=== PATIENT | female | born 1955 | race Caucasian/White ===

== ENCOUNTER → 2016-10-21 | Outpatient (CLI) | payer OTHER ==
[~2016-10-21] MED LIST: ATENOLOL PO; DAYPRO600 M1 PO; GLIPIZIDE1 POW PO; GLUCOPHAGE500 MG PO; HYDR25T PO; LANTUS SOLOS100 U/M1 SC; LANTUS100 U/ML SC; LEXAPRO20 MG PO; LEXAPRO5 MG; MAGNESIUM DR64 MG PO; NORVASC2.5 MG PO; OMEPRAZOLE40 MG PO; PRAVASTATIN SOD40 MG PO; RESTORIL30 M1 PO; TENORMIN0.5 MG/ML; VICODIN 5/500 505 MG PO; VICODIN 500 MG-1 TAB PO; VISTARIL25 M2 PO; VITAMIN D50000 I3 PO; XANAX0.25 MG; ZESTRIL2.5 MG; ZOCOR5 MG
[2016-10-21 09:40] LABS: ALBUMIN 3.4 gm/dl (3.1-4.5); BILIRUBIN, TOTAL 0.4 mg/dl (0.2-1.0); MAGNESIUM 1.6 mg/dL (1.5-2.1); POTASSIUM 3.4 mmol/L (3.5-5.1); TOTAL PROTEIN 7.8 gm/dL (6.4-8.2)
[2016-10-21 09:46] LABS: THYROID STIM HORMONE (HS) 2.51 uIU/ml (0.358-4.75)
[2016-10-21 10:03] LABS: HEMOGLOBIN A1c 7.9 % (4.8-5.6)
== END | disposition home or self-care (01) ==
LOC: LAB 08:52
PROVIDERS: Family Medicine
DX: E11.9 Type 2 diabetes mellitus without complications (principal); E78.5 Hyperlipidemia, unspecified

== ENCOUNTER → 2017-04-13 | Outpatient (CLI) | payer OTHER ==
[2017-04-13 09:11] LABS: BASO # 0.1 10*3/uL (0.0-0.1); BASO % 0.7 % (0.0-1.0); EOS # 0.4 10*3/uL (0.0-0.4); EOS % 3.2 % (1.0-4.0); HEMATOCRIT 40.7 % (37.0-47.0); HEMOGLOBIN 13.7 g/dl (12.0-16.0); LYMPH # 4.6 10*3/uL (1.3-4.4); LYMPH % 36.6 % (27.0-41.0); MEAN CELL VOLUME 85.7 fl (81.0-99.0); MEAN CORPUSCULAR HGB 28.8 pg (27.0-31.0); MEAN CORPUSCULAR HGB CONC 33.7 g/dl (33.0-37.0); MEAN PLATELET VOLUME 10.3 fl (9.6-12.3); MONO % 7.9 % (3.0-9.0); NEUT # 6.4 10*3/uL (2.3-7.9); NEUT % 51.3 % (47.0-73.0); PLATELET COUNT AUTOMATED 468 10*3/uL (130-400); RED BLOOD COUNT 4.75 10*6/uL (4.10-5.10); RED CELL DISTRI WIDTH 12.6 % (0-14.5); WHITE BLOOD COUNT 12.5 10*3/uL (4.8-10.8)
[2017-04-13 09:38] LABS: ALBUMIN 3.6 gm/dl (3.1-4.5); CREATININE 1.48 mg/dL (0.55-1.02); POTASSIUM 3.4 mmol/L (3.5-5.1); TOTAL PROTEIN 8.4 gm/dL (6.4-8.2)
== END | disposition home or self-care (01) ==
LOC: LAB 08:19
PROVIDERS: Registered Nurse Flight
DX: D72.828 Other elevated white blood cell count (principal)

== ENCOUNTER → 2017-07-24 | Outpatient (CLI) | payer OTHER ==
[2017-07-24 09:52] LABS: BILIRUBIN NEGATIVE (NEGATIVE); BLOOD NEGATIVE (NEGATIVE); CLARITY CLOUDY (CLEAR); COLOR YELLOW (YELLOW); GLUCOSE NEGATIVE (NEGATIVE); KETONE NEGATIVE (NEGATIVE); LEUKO ESTERASE 2+ (NEGATIVE); NITRITE NEGATIVE (NEGATIVE); UROBILINOGEN 0.2 E.U./dl (0.2-1.0)
[2017-07-24 09:59] LABS: BACTERIA 2+; EPITHELIAL CELLS 41-50; WBC 41-50 wbc/hpf (0-5)
[2017-07-24 10:07] LABS: ALBUMIN 3.3 gm/dl (3.1-4.5); ALKALINE PHOSPHATASE 99 U/L (45-117); BILIRUBIN, DIRECT < 0.1 mg/dL (0.0-0.2); BUN 19 mg/dl (7-24); CHLORIDE 102 mmol/L (98-107); CHOLESTEROL 183 mg/dL (<200); CREATININE 1.15 mg/dL (0.55-1.02); HDL CHOLESTEROL 30 mg/dl (40-60); LDL CHOLESTEROL 114 mg/dL (9-159); POTASSIUM 3.9 mmol/L (3.5-5.1); SGOT/AST 11 IU/L (3-35); SGPT/ALT 21 U/L (12-78); SODIUM 139 mmol/L (136-145); TOTAL PROTEIN 7.9 gm/dL (6.4-8.2); TRIGLYCERIDES 197 mg/dl (<150); VLDL CHOLESTEROL 39 mg/dL (6-40)
== END | disposition home or self-care (01) ==
LOC: LAB 09:07
PROVIDERS: Internal Medicine
DX: E11.65 Type 2 diabetes mellitus with hyperglycemia (principal); E78.5 Hyperlipidemia, unspecified; E55.9 Vitamin D deficiency, unspecified

== ENCOUNTER → 2017-10-12 | Outpatient (CLI) | payer OTHER ==
[2017-10-12 08:35] LABS: HEMATOCRIT 39.4 % (37.0-47.0); HEMOGLOBIN 13.4 g/dl (12.0-16.0); MEAN CELL VOLUME 81.7 fl (81.0-99.0); MEAN CORPUSCULAR HGB 27.8 pg (27.0-31.0); MEAN PLATELET VOLUME 10.1 fl (9.6-12.3); RED BLOOD COUNT 4.82 10*6/uL (4.10-5.10); RED CELL DISTRI WIDTH 13.6 % (0-14.5); WHITE BLOOD COUNT 11.1 10*3/uL (4.8-10.8)
[2017-10-12 09:15] LABS: ALBUMIN 3.3 gm/dl (3.1-4.5); BUN 14 mg/dl (7-24); CHLORIDE 104 mmol/L (98-107); CHOLESTEROL 150 mg/dL (<200); CREATININE 1.08 mg/dL (0.55-1.02); POTASSIUM 3.6 mmol/L (3.5-5.1); SGOT/AST 14 IU/L (3-35); SGPT/ALT 22 U/L (12-78); SODIUM 141 mmol/L (136-145); TRIGLYCERIDES 167 mg/dl (<150); VLDL CHOLESTEROL 33 mg/dL (6-40)
[2017-10-12 09:16] LABS: ALKALINE PHOSPHATASE 107 U/L (45-117); HDL CHOLESTEROL 31 mg/dl (40-60); LDL CHOLESTEROL 86 mg/dL (9-159); TOTAL PROTEIN 7.8 gm/dL (6.4-8.2)
== END | disposition home or self-care (01) ==
LOC: LAB 08:02
PROVIDERS: Registered Nurse Flight
DX: E11.22 Type 2 diabetes mellitus with diabetic chronic kidney disease (principal); N18.9 Chronic kidney disease, unspecified; E11.40 Type 2 diabetes mellitus with diabetic neuropathy, unspecified; E78.5 Hyperlipidemia, unspecified; E55.9 Vitamin D deficiency, unspecified

== ENCOUNTER → 2017-12-10 | Outpatient (CLI) | payer OTHER ==
[2017-12-10 10:39] LABS: BILIRUBIN NEGATIVE (NEGATIVE); BLOOD NEGATIVE (NEGATIVE); CLARITY SL CLOUDY (CLEAR); COLOR YELLOW (YELLOW); GLUCOSE NEGATIVE (NEGATIVE); KETONE NEGATIVE (NEGATIVE); LEUKO ESTERASE NEGATIVE (NEGATIVE); NITRITE NEGATIVE (NEGATIVE); SPECIFIC GRAVITY 1.015 (1.005-1.030); UROBILINOGEN 0.2 E.U./dl (0.2-1.0)
[2017-12-10 11:11] LABS: ALBUMIN 3.5 gm/dl (3.1-4.5); ALKALINE PHOSPHATASE 106 U/L (45-117); BILIRUBIN, DIRECT < 0.1 mg/dL (0.0-0.2); BUN 15 mg/dl (7-24); CHLORIDE 103 mmol/L (98-107); CHOLESTEROL 149 mg/dL (<200); CREATININE 1.13 mg/dL (0.55-1.02); HDL CHOLESTEROL 27 mg/dl (40-60); LDL CHOLESTEROL 80 mg/dL (9-159); POTASSIUM 3.5 mmol/L (3.5-5.1); SGOT/AST 15 IU/L (3-35); SGPT/ALT 23 U/L (12-78); SODIUM 139 mmol/L (136-145); TOTAL PROTEIN 8.2 gm/dL (6.4-8.2); TRIGLYCERIDES 211 mg/dl (<150); VLDL CHOLESTEROL 42 mg/dL (6-40)
[2017-12-10 11:20] LABS: EPITHELIAL CELLS 26-30
[2017-12-10 11:21] LABS: BACTERIA 2+
== END | disposition home or self-care (01) ==
LOC: LAB 10:10
PROVIDERS: Internal Medicine
DX: E78.5 Hyperlipidemia, unspecified (principal); E04.9 Nontoxic goiter, unspecified; E11.9 Type 2 diabetes mellitus without complications; E55.9 Vitamin D deficiency, unspecified; R30.9 Painful micturition, unspecified; R35.0 Frequency of micturition

== ENCOUNTER → 2018-04-19 | Outpatient (CLI) | payer OTHER ==
[2018-04-19 13:37] LABS: BILIRUBIN NEGATIVE (NEGATIVE); BLOOD NEGATIVE (NEGATIVE); CLARITY SL CLOUDY (CLEAR); COLOR YELLOW (YELLOW); GLUCOSE NEGATIVE (NEGATIVE); KETONE NEGATIVE (NEGATIVE); LEUKO ESTERASE TRACE (NEGATIVE); NITRITE NEGATIVE (NEGATIVE); UROBILINOGEN 0.2 E.U./dl (0.2-1.0)
[2018-04-19 14:01] LABS: ALBUMIN 3.4 gm/dl (3.1-4.5); ALKALINE PHOSPHATASE 114 U/L (45-117); BUN 11 mg/dl (7-24); CHLORIDE 104 mmol/L (98-107); CREATININE 1.22 mg/dL (0.55-1.02); SGOT/AST 23 IU/L (3-35); SGPT/ALT 20 U/L (12-78); SODIUM 136 mmol/L (136-145); TOTAL PROTEIN 8.7 gm/dL (6.4-8.2)
[2018-04-19 14:02] LABS: BILIRUBIN, DIRECT < 0.1 mg/dL (0.0-0.2)
[2018-04-19 14:17] LABS: CHOLESTEROL 134 mg/dL (<200); HDL CHOLESTEROL 27 mg/dl (40-60); LDL CHOLESTEROL 65 mg/dL (9-159); TRIGLYCERIDES 210 mg/dl (<150); VLDL CHOLESTEROL 42 mg/dL (6-40)
[2018-04-19 14:25] LABS: RBC 0-2 rbc/hpf (0-2)
[2018-04-19 14:26] LABS: BACTERIA 2+
[2018-04-19 14:32] LABS: FREE T4 1.04 ng/dl (0.76-1.46)
== END | disposition home or self-care (01) ==
LOC: LAB 13:08
PROVIDERS: Internal Medicine
DX: E11.9 Type 2 diabetes mellitus without complications (principal); E04.9 Nontoxic goiter, unspecified; E78.5 Hyperlipidemia, unspecified; E55.9 Vitamin D deficiency, unspecified

== ENCOUNTER → 2018-07-13 | Outpatient (CLI) | payer OTHER ==
[2018-07-13 11:42] LABS: HEMATOCRIT 39.5 % (37.0-47.0); HEMOGLOBIN 12.6 g/dl (12.0-16.0); MEAN CELL VOLUME 85.5 fl (81.0-99.0); MEAN CORPUSCULAR HGB 27.3 pg (27.0-31.0); MEAN CORPUSCULAR HGB CONC 31.9 g/dl (33.0-37.0); MEAN PLATELET VOLUME 10.4 fl (9.6-12.3); RED BLOOD COUNT 4.62 10*6/uL (4.10-5.10); RED CELL DISTRI WIDTH 14.2 % (0-14.5); WHITE BLOOD COUNT 12.9 10*3/uL (4.8-10.8)
[2018-07-13 12:10] LABS: ALBUMIN 3.3 gm/dl (3.1-4.5); CREATININE 1.28 mg/dL (0.55-1.02); POTASSIUM 3.6 mmol/L (3.5-5.1); TOTAL PROTEIN 7.8 gm/dL (6.4-8.2)
== END | disposition home or self-care (01) ==
LOC: LAB 11:21
PROVIDERS: Registered Nurse Flight
DX: E11.9 Type 2 diabetes mellitus without complications (principal); I10 Essential (primary) hypertension; E78.5 Hyperlipidemia, unspecified; E55.9 Vitamin D deficiency, unspecified

== ENCOUNTER → 2018-12-09 | Outpatient (CLI) | payer OTHER ==
[2018-12-09 10:56] LABS: BILIRUBIN NEGATIVE (NEGATIVE); BLOOD NEGATIVE (NEGATIVE); CLARITY SL CLOUDY (CLEAR); COLOR YELLOW (YELLOW); GLUCOSE NEGATIVE (NEGATIVE); KETONE NEGATIVE (NEGATIVE); LEUKO ESTERASE NEGATIVE (NEGATIVE); NITRITE NEGATIVE (NEGATIVE); PH 6.5 (5.0-9.0); UROBILINOGEN 0.2 E.U./dl (0.2-1.0)
[2018-12-09 11:13] LABS: MUCOUS TRACE
[2018-12-09 11:27] LABS: ALBUMIN 3.4 gm/dl (3.1-4.5); BILIRUBIN, DIRECT 0.2 mg/dL (0.0-0.2); CREATININE 1.35 mg/dL (0.55-1.02); FREE T4 1.13 ng/dl (0.76-1.46); POTASSIUM 3.8 mmol/L (3.5-5.1); TOTAL PROTEIN 8.1 gm/dL (6.4-8.2)
[2018-12-09 11:33] LABS: THYROID STIM HORMONE (HS) 2.35 uIU/ml (0.358-4.75)
== END | disposition home or self-care (01) ==
LOC: LAB 10:23
PROVIDERS: Internal Medicine
DX: E11.9 Type 2 diabetes mellitus without complications (principal); E04.9 Nontoxic goiter, unspecified; E78.5 Hyperlipidemia, unspecified; E55.9 Vitamin D deficiency, unspecified; I10 Essential (primary) hypertension

== ENCOUNTER 2019-04-15 18:37 | Emergency (ER) | payer OTHER ==
[~2019-04-15] VITALS: Ht 175.2 cm; Wt 124.7 kg
[2019-04-15] MEDS ORDERED: NORCO 5-325 TA1 EACH PO (21:28)
[2019-04-15] MEDS ORDERED: CYCLOBENZAPRINE5 M3 PO (21:28)
== END 2019-04-15 21:32 | disposition home or self-care (01) ==
LOC: ED 18:37
DX: S39.012A Strain of muscle, fascia and tendon of lower back, initial encounter (principal); M25.552 Pain in left hip; Z88.0 Allergy status to penicillin; Z91.040 Latex allergy status; Z79.899 Other long term (current) drug therapy; Z79.4 Long term (current) use of insulin; Z96.641 Presence of right artificial hip joint; Z96.642 Presence of left artificial hip joint; X50.1XXA Overexertion from prolonged static or awkward postures, initial encounter; Y93.89 Activity, other specified; Y92.238 Other place in hospital as the place of occurrence of the external cause; Y99.8 Other external cause status

== ENCOUNTER → 2019-05-20 | Outpatient (CLI) | payer OTHER ==
[~2019-05-20] MED LIST changes: +CYCLOBENZAPRINE5 M3 PO; +NORCO 5-325 TA1 EACH PO
[2019-05-20 12:46] LABS: BILIRUBIN NEGATIVE (NEGATIVE); BLOOD NEGATIVE (NEGATIVE); CLARITY CLEAR (CLEAR); COLOR YELLOW (YELLOW); GLUCOSE NEGATIVE (NEGATIVE); KETONE NEGATIVE (NEGATIVE); LEUKO ESTERASE NEGATIVE (NEGATIVE); NITRITE NEGATIVE (NEGATIVE); PH 7.5 (5.0-9.0)
[2019-05-20 13:07] LABS: ALBUMIN 3.3 gm/dl (3.1-4.5); ALKALINE PHOSPHATASE 63 U/L (45-117); BILIRUBIN, DIRECT < 0.1 mg/dL (0.0-0.2); BUN 12 mg/dl (7-24); CHLORIDE 105 mmol/L (98-107); CHOLESTEROL 133 mg/dL (<200); CREATININE 1.19 mg/dL (0.55-1.02); FREE T4 1.05 ng/dl (0.76-1.46); HDL CHOLESTEROL 27 mg/dl (40-60); LDL CHOLESTEROL 69 mg/dL (9-159); SGOT/AST 24 IU/L (3-35); SGPT/ALT 21 U/L (12-78); SODIUM 141 mmol/L (136-145); TOTAL PROTEIN 7.7 gm/dL (6.4-8.2); TRIGLYCERIDES 187 mg/dl (<150); VLDL CHOLESTEROL 37 mg/dL (6-40)
[2019-05-20 13:11] LABS: POTASSIUM 3.6 mmol/L (3.5-5.1)
== END | disposition home or self-care (01) ==
LOC: LAB 11:31
PROVIDERS: Internal Medicine
DX: E78.5 Hyperlipidemia, unspecified (principal); E11.9 Type 2 diabetes mellitus without complications; E04.9 Nontoxic goiter, unspecified; E83.42 Hypomagnesemia

== ENCOUNTER → 2020-01-10 | Outpatient (CLI) | payer MEDICARE ==
[2020-01-10 10:28] LABS: BASO # 0.1 10*3/uL (0.0-0.1); BASO % 0.8 % (0.0-1.0); EOS # 0.4 10*3/uL (0.0-0.4); EOS % 2.8 % (1.0-4.0); HEMATOCRIT 45.6 % (37.0-47.0); LYMPH # 4.7 10*3/uL (1.3-4.4); MEAN CELL VOLUME 83.7 fl (81.0-99.0); MEAN CORPUSCULAR HGB 25.9 pg (27.0-31.0); MEAN CORPUSCULAR HGB CONC 30.9 g/dl (33.0-37.0); MEAN PLATELET VOLUME 10.4 fl (9.6-12.3); MONO # 1.3 10*3/uL (0.1-1.0); MONO % 9.7 % (3.0-9.0); NEUT # 6.9 10*3/uL (2.3-7.9); NEUT % 51.4 % (47.0-73.0); PLATELET COUNT AUTOMATED 467 10*3/uL (130-400); RED BLOOD COUNT 5.45 10*6/uL (4.10-5.10); RED CELL DISTRI WIDTH 15.9 % (0-14.5); WHITE BLOOD COUNT 13.3 10*3/uL (4.8-10.8)
[2020-01-10 10:39] LABS: ALBUMIN 3.4 gm/dl (3.1-4.5); BILIRUBIN, DIRECT 0.2 mg/dL (0.0-0.2); CREATININE 1.28 mg/dL (0.55-1.02); POTASSIUM 3.3 mmol/L (3.5-5.1)
[2020-01-10 10:46] LABS: FREE T4 1.14 ng/dl (0.76-1.46); THYROID STIM HORMONE (HS) 3.09 uIU/ml (0.358-4.75); TOTAL PROTEIN 8.2 gm/dL (6.4-8.2)
[2020-01-10 13:48] LABS: BILIRUBIN NEGATIVE (NEGATIVE); BLOOD NEGATIVE (NEGATIVE); CLARITY CLEAR (CLEAR); COLOR YELLOW (YELLOW); GLUCOSE NEGATIVE (NEGATIVE); KETONE NEGATIVE (NEGATIVE); PH 8.5 (5.0-9.0)
[2020-01-10 13:49] LABS: BACTERIA TRACE; LEUKO ESTERASE NEGATIVE (NEGATIVE); NITRITE NEGATIVE (NEGATIVE); RBC 0-2 rbc/hpf (0-2); UROBILINOGEN 0.2 E.U./dl (0.2-1.0); WBC 0-2 wbc/hpf (0-5)
== END | disposition home or self-care (01) ==
LOC: LAB 09:33
PROVIDERS: Internal Medicine; Internal Medicine Cardiovascular Disease
DX: I25.10 Atherosclerotic heart disease of native coronary artery without angina pectoris (principal); E55.9 Vitamin D deficiency, unspecified; E11.9 Type 2 diabetes mellitus without complications; E04.9 Nontoxic goiter, unspecified; E78.5 Hyperlipidemia, unspecified

== ENCOUNTER → 2020-02-13 | Outpatient (CLI) | payer MEDICARE, MEDICAID | END | disposition home or self-care (01) | LOC: RAD 09:54 | DX: M47.817 Spondylosis without myelopathy or radiculopathy, lumbosacral region (principal); M48.07 Spinal stenosis, lumbosacral region; M41.84 Other forms of scoliosis, thoracic region; M54.41 Lumbago with sciatica, right side ==

== ENCOUNTER → 2020-02-27 | Outpatient (CLI) | payer MEDICARE, MEDICAID | END | disposition home or self-care (01) | LOC: MRI 11:59 | PROVIDERS: ATTEND Registered Nurse Flight | DX: S32.010G Wedge compression fracture of first lumbar vertebra, subsequent encounter for fracture with delayed healing (principal); X58.XXXS Exposure to other specified factors, sequela ==

== ENCOUNTER → 2020-03-22 | Outpatient (CLI) | payer MEDICARE, MEDICAID ==
[2020-03-22 14:57] LABS: BACTERIA 2+; BILIRUBIN Negative; BLOOD 3+ (NEGATIVE); CLARITY Cloudy (CLEAR); COLOR Dark Yellow (YELLOW); EPITHELIAL CELLS 41-50; GLUCOSE Negative; KETONE Trace; LEUKO ESTERASE 2+ (NEGATIVE); NITRITE Negative (NEGATIVE); PH 5.5 (4.5-8.0); RBC TNTC rbc/hpf (0-2); SPECIFIC GRAVITY 1.025 (1.001-1.030); WBC TNTC wbc/hpf (0-5)
[2020-03-22 15:06] LABS: ALBUMIN 3.4 gm/dl (3.1-4.5); BILIRUBIN, DIRECT 0.2 mg/dL (0.0-0.2); CREATININE 1.32 mg/dL (0.55-1.02); FREE T4 1.16 ng/dl (0.76-1.46); POTASSIUM 3.5 mmol/L (3.5-5.1)
[2020-03-22 15:12] LABS: THYROID STIM HORMONE (HS) 1.06 uIU/ml (0.358-4.75)
[2020-03-22 16:16] LABS: VITAMIN D, 25-HYDROXY 37.7 ng/mL (30-100)
== END | disposition home or self-care (01) ==
LOC: LAB 13:17 → RAD 13:30
PROVIDERS: ATTEND Internal Medicine
DX: E11.40 Type 2 diabetes mellitus with diabetic neuropathy, unspecified (principal); M48.54XA Collapsed vertebra, not elsewhere classified, thoracic region, initial encounter for fracture; E78.5 Hyperlipidemia, unspecified; E04.9 Nontoxic goiter, unspecified; E83.2 Disorders of zinc metabolism

== ENCOUNTER → 2020-11-08 | Outpatient (CLI) | payer OTHER, MEDICAID | END | disposition home or self-care (01) | LOC: US 13:21 | PROVIDERS: ATTEND Obstetrics & Gynecology | DX: R93.89 Abnormal findings on diagnostic imaging of other specified body structures (principal); D25.9 Leiomyoma of uterus, unspecified; N95.0 Postmenopausal bleeding ==

== ENCOUNTER → 2021-06-06 | Outpatient (CLI) | payer OTHER, MEDICAID ==
[~2021-06-06] MED LIST changes: +ASPIRIN81 M1 PO; +CARTIA XT240 MG PO; +DOXIPIN PO; +ELIQUIS5 M1 PO; +FINOFIBRATE PO; +GLIPIZIDE XL10 M1 PO; +LANTUS SOL100 UNIT/1 SC; -LANTUS100 U/ML SC; +LISINOPRIL-HCT1 EACH PO; +MAG6464 MG PO; +PROTONIX40 M1 IV; +TENORMIN100 MG PO; +TRULICITY0.75 MG/0. SQ; +VALIUM5 MG PO
== END | disposition home or self-care (01) ==
LOC: CARD 05-30 11:30
PROVIDERS: ATTEND Internal Medicine Cardiovascular Disease
DX: I25.10 Atherosclerotic heart disease of native coronary artery without angina pectoris (principal); I10 Essential (primary) hypertension; E66.9 Obesity, unspecified; E11.9 Type 2 diabetes mellitus without complications; E78.5 Hyperlipidemia, unspecified; R53.83 Other fatigue; R06.02 Shortness of breath; Z95.5 Presence of coronary angioplasty implant and graft

== ENCOUNTER → 2022-04-10 | Outpatient (CLI) | payer OTHER, MEDICAID ==
[2022-04-10 13:37] LABS: BILIRUBIN 1+ (Negative); BLOOD 2+ (Negative); CLARITY Cloudy (Clear); COLOR Dark Yellow (Yellow); GLUCOSE Negative (Negative); KETONE Trace (Negative); LEUKO ESTERASE 2+ (Negative); NITRITE Negative (Negative)
[2022-04-10 13:49] LABS: BACTERIA 1+; WBC 16-20 wbc/hpf (0-5)
[2022-04-10 13:57] LABS: CREATININE 1.5 mg/dL (0.55-1.02); POTASSIUM 3.5 mmol/L (3.5-5.1)
[2022-04-10 14:03] LABS: FREE T4 1.27 ng/dl (0.76-1.46); THYROID STIM HORMONE (HS) 1.36 uIU/ml (0.358-4.75)
[2022-04-10 14:22] LABS: VITAMIN D, 25-HYDROXY 41.3 ng/mL (30-100)
== END | disposition home or self-care (01) ==
LOC: LAB 12:58
PROVIDERS: ATTEND Internal Medicine
DX: E11.65 Type 2 diabetes mellitus with hyperglycemia (principal); E04.9 Nontoxic goiter, unspecified; E11.40 Type 2 diabetes mellitus with diabetic neuropathy, unspecified; E55.9 Vitamin D deficiency, unspecified; E78.5 Hyperlipidemia, unspecified

== ENCOUNTER 2024-06-01 13:46 | Emergency (ER) | payer MEDICARE, MEDICAID ==
[~2024-06-01] VITALS: Ht 175.2 cm; Wt 121.6 kg
[2024-06-01] MEDS ORDERED: Ondansetron Hydrochloride 4 MG/2 ML VIAL IV ONE (13:50)
[2024-06-01] MEDS ORDERED: MORPHINE Sulfate 2 MG/ML SYR IV ONE (13:50)
[2024-06-01] MEDS ORDERED: Metoprolol Tartrate 5 MG/5 ML VIAL IV ONE (14:05)
[2024-06-01] MEDS ORDERED: ASPIRIN, CHEWABLE 81 MG TAB PO ONE (14:05)
[2024-06-01] MEDS ORDERED: HEPARIN SODIUM 250 ML IV SCH (14:05)
[2024-06-01] MEDS ORDERED: Clopidogrel Hydrogen Sulfate 75 MG TAB PO ONE (14:05)
[2024-06-01 14:23] LABS: BASO # 0.1 10*3/uL (0.0-0.1); BASO % 0.8 % (0.0-1.0); EOS # 0.1 10*3/uL (0.0-0.4); EOS % 1.1 % (1.0-4.0); MEAN CELL VOLUME 89.8 fl (81.0-99.0); MEAN CORPUSCULAR HGB 29.8 pg (27.0-31.0); MEAN CORPUSCULAR HGB CONC 33.1 g/dl (33.0-37.0); MEAN PLATELET VOLUME 10.6 fl (9.6-12.3); MONO # 0.9 10*3/uL (0.1-1.0); MONO % 7.5 % (3.0-9.0); NEUT # 8.2 10*3/uL (2.3-7.9); NEUT % 67.7 % (47.0-73.0); PLATELET COUNT AUTOMATED 388 10*3/uL (130-400); RED BLOOD COUNT 5.68 10*6/uL (4.10-5.10); RED CELL DISTRI WIDTH 12.7 % (0-14.5); WHITE BLOOD COUNT 12.1 10*3/uL (4.8-10.8)
[2024-06-01 14:37] LABS: ACT PARTIAL THROMBO TIME 27.7 SECONDS (20.0-32.1)
[2024-06-01 14:42] LABS: POTASSIUM 3.4 mmol/L (3.4-5.1)
== END 2024-06-01 15:13 | disposition short-term general hospital (02) ==
LOC: ED 13:46
DX: I21.3 ST elevation (STEMI) myocardial infarction of unspecified site (principal); I25.10 Atherosclerotic heart disease of native coronary artery without angina pectoris; I10 Essential (primary) hypertension; E78.5 Hyperlipidemia, unspecified; I48.91 Unspecified atrial fibrillation; R61 Generalized hyperhidrosis; Z88.0 Allergy status to penicillin; Z91.040 Latex allergy status; Z79.4 Long term (current) use of insulin; Z79.84 Long term (current) use of oral hypoglycemic drugs; Z79.899 Other long term (current) drug therapy; Z79.82 Long term (current) use of aspirin

== ENCOUNTER → 2024-08-11 | Outpatient (CLI) | payer OTHER, MEDICAID ==
[~2024-08-11] MED LIST changes: +ABILIFY2 MG PO; +ALDACTONE25 MG PO; +ASPIRIN CHILDRE81 MG PO; +ATORVASTATIN CA80 M1 PO; +BASAG SOL SC; +DILTIAZEM HCL120 M2 PO; +ESCITALOPRAM OX20 MG PO; +FENOFIBRATE48 M1 PO; +LASIX20 MG PO; +LISINOPRIL10 M1 PO; +LOPRESSOR25 MG PO; +MAGNESIUM OXID400 MG PO; +METOPROLOL TART50 M1 PO; +NOVOLOG FL100 UNIT/2 SQ; +PLAVIX75 M1 PO; +PROTONIX IV40 MG PO; +VITAMIN D3125 MC1 PO
== END | disposition home or self-care (01) ==
LOC: US 01:57
PROVIDERS: ATTEND Nurse Practitioner Women's Health
DX: D25.2 Subserosal leiomyoma of uterus (principal); R10.2 Pelvic and perineal pain

== ENCOUNTER 2024-12-05 21:41 | Inpatient (IN) | payer OTHER, MEDICAID ==
[~2024-12-05] VITALS: Ht 175.3 cm; Wt 124.0 kg
[~2024-12-05 21:41] MED LIST changes: +LASIX40 MG PO; +LEVOFLOXACIN750 M2 PO; +MUCINEX1200 M1 PO; +TRESIBA FL100 UNIT/1 SQ; +VENT7GM INH
[2024-12-05 21:55] VITALS: BP 133/103
[2024-12-05] MEDS ORDERED: FUROSEMIDE 40 MG/4 ML VIAL IV ONE (22:00)
[2024-12-05] MEDS ORDERED: Ondansetron Hydrochloride 4 MG/2 ML VIAL IV ONE (22:05)
[2024-12-05 22:39] LABS: BASO # 0.1 10*3/uL (0.0-0.1); BASO % 0.6 % (0.0-1.0); EOS # 0.2 10*3/uL (0.0-0.4); EOS % 1.3 % (1.0-4.0); HEMATOCRIT 45.4 % (37.0-47.0); MEAN CELL VOLUME 90.1 fl (81.0-99.0); MEAN CORPUSCULAR HGB 29.6 pg (27.0-31.0); MEAN CORPUSCULAR HGB CONC 32.8 g/dl (33.0-37.0); MEAN PLATELET VOLUME 10.2 fl (9.6-12.3); MONO # 1.2 10*3/uL (0.1-1.0); MONO % 9.4 % (3.0-9.0); NEUT % 71.2 % (47.0-73.0); PLATELET COUNT AUTOMATED 410 10*3/uL (130-400); RED BLOOD COUNT 5.04 10*6/uL (4.10-5.10); RED CELL DISTRI WIDTH 13.2 % (0-14.5); WHITE BLOOD COUNT 12.6 10*3/uL (4.8-10.8)
[2024-12-05 23:01] LABS: ALKALINE PHOSPHATASE 112 U/L (46-116); BUN 19 mg/dl (9-23); CHLORIDE 102 mmol/L (98-107); CPK 54 U/L (34-171); POTASSIUM 3.8 mmol/L (3.4-5.1); SGPT/ALT 26 U/L (5-49); TOTAL PROTEIN 6.8 gm/dL (6.0-8.0)
[2024-12-05] MEDS ORDERED: NITROGLYCERIN 1 IN PACKET T ONE (23:20)
[2024-12-05] MEDS ORDERED: ASPIRIN 325 MG TAB PO ONE (23:20)
[2024-12-06] MEDS ORDERED: BISACODYL 5 MG TAB PO PRN (00:55)
[2024-12-06] MEDS ORDERED: Ondansetron Hydrochloride 4 MG/2 ML VIAL IV PRN (00:55)
[2024-12-06] MEDS ORDERED: BISACODYL 10 MG SUPP R PRN (00:55)
[2024-12-06] MEDS ORDERED: ACETAMINOPHEN 325 MG TAB PO PRN (00:55)
[2024-12-06] MEDS ORDERED: Magnesium Hydroxide 30 ML UDC PO PRN (00:55)
[2024-12-06] MEDS ORDERED: ACETAMINOPHEN 650 MG SUPP R PRN (00:55)
[2024-12-06 01:00] VITALS: BP 102/64
[2024-12-06] MEDS ORDERED: DEXTROSE 50% 25 GM/50 ML VIAL IV PRN (01:50)
[2024-12-06] MEDS ORDERED: LOPRESSOR50 M1 PO (05:50)
[2024-12-06] MEDS ORDERED: LASIX20 MG PO (05:53)
[2024-12-06 05:58] LABS: HEMATOCRIT 41.7 % (37.0-47.0); MEAN CELL VOLUME 90.5 fl (81.0-99.0); MEAN CORPUSCULAR HGB 30.4 pg (27.0-31.0); MEAN CORPUSCULAR HGB CONC 33.6 g/dl (33.0-37.0); MEAN PLATELET VOLUME 10.1 fl (9.6-12.3); PLATELET COUNT AUTOMATED 382 10*3/uL (130-400); RED BLOOD COUNT 4.61 10*6/uL (4.10-5.10); RED CELL DISTRI WIDTH 13.1 % (0-14.5); WHITE BLOOD COUNT 12.5 10*3/uL (4.8-10.8)
[2024-12-06 06:07] LABS: MANUAL DIFF REFLEX YES
[2024-12-06 06:12] VITALS: BP 123/84
[2024-12-06 06:44] LABS: BASOPHILS 1 % (0-1); PLATELET SUFFICIENCY NORMAL (NORMAL); TOTAL CELLS COUNTED 100 #CELLS
[2024-12-06 06:45] LABS: BURR CELLS FEW
[2024-12-06 06:56] LABS: ALKALINE PHOSPHATASE 102 U/L (46-116); BUN 18 mg/dl (9-23); CHLORIDE 101 mmol/L (98-107); POTASSIUM 3.3 mmol/L (3.4-5.1); SGPT/ALT 21 U/L (5-49); TOTAL PROTEIN 6.3 gm/dL (6.0-8.0)
[2024-12-06] MEDS ORDERED: INSULIN LISPRO 1 UNIT/0.01 ML SQ SCH (07:30)
[2024-12-06] MEDS ORDERED: POTASSIUM CHLORIDE 20 MEQ TAB PO ONE (08:45)
[2024-12-06] MEDS ORDERED: diazePAM 5 MG TAB PO PRN (09:45)
[2024-12-06] MEDS ORDERED: FUROSEMIDE 40 MG/4 ML VIAL IV SCH (10:00)
[2024-12-06] MEDS ORDERED: dilTIAZem CD 120 MG CAP PO SCH (10:00)
[2024-12-06] MEDS ORDERED: Pantoprazole Sodium 40 MG TAB PO SCH (10:00)
[2024-12-06] MEDS ORDERED: ASPIRIN, CHEWABLE 81 MG TAB PO SCH (10:00)
[2024-12-06] MEDS ORDERED: ESCITALOPRAM OXALATE 20 MG TAB PO SCH (10:00)
[2024-12-06] MEDS ORDERED: Metoprolol Tartrate 50 MG TAB PO SCH (10:00)
[2024-12-06] MEDS ORDERED: LISINOPRIL 10 MG TAB PO SCH (10:00)
[2024-12-06] MEDS ORDERED: Cholecalciferol 5,000 IU CAP (125 MCG) PO SCH (10:00)
[2024-12-06] MEDS ORDERED: APIXABAN 5 MG TAB PO SCH (10:00)
[2024-12-06] MEDS ORDERED: ATORVASTATIN CALCIUM 80 MG TAB PO SCH (10:00)
[2024-12-06] MEDS ORDERED: Clopidogrel Hydrogen Sulfate 75 MG TAB PO SCH (10:00)
[2024-12-06 12:55] VITALS: BP 126/85
[2024-12-06 16:00] VITALS: BP 112/62
[2024-12-06 20:00] VITALS: BP 135/80
[2024-12-06] MEDS ORDERED: Benzocaine/Menthol 1 LOZ LOZENGE PO PRN (20:35)
[2024-12-06] MEDS ORDERED: Insulin Glargine, Recombinan 1 UNIT/0.01 ML SC SCH (22:00)
[2024-12-06] MEDS ORDERED: NYSTATIN 15 GM BOT T SCH (22:00)
[2024-12-06] MEDS ORDERED: ARIPiprazole 2 MG TAB PO SCH (22:00)
[2024-12-07] VITALS: BP 130/91
[2024-12-07 07:32] LABS: POTASSIUM 3.8 mmol/L (3.4-5.1)
[2024-12-07 08:00] VITALS: BP 135/97
[2024-12-07 08:11] LABS: HEMATOCRIT 44.1 % (37.0-47.0); MEAN CORPUSCULAR HGB 29.9 pg (27.0-31.0); MEAN PLATELET VOLUME 10.6 fl (9.6-12.3); PLATELET COUNT AUTOMATED 382 10*3/uL (130-400); RED BLOOD COUNT 4.72 10*6/uL (4.10-5.10); RED CELL DISTRI WIDTH 13.3 % (0-14.5); WHITE BLOOD COUNT 13.1 10*3/uL (4.8-10.8)
[2024-12-07 08:14] LABS: MANUAL DIFF REFLEX YES; MEAN CELL VOLUME 93.4 fl (81.0-99.0)
[2024-12-07 09:13] LABS: PLATELET SUFFICIENCY NORMAL (NORMAL); TOTAL CELLS COUNTED 100 #CELLS
[2024-12-07] MEDS ORDERED: EMPAGLIFLOZIN 10 MG TABLET PO SCH (10:00)
[2024-12-07] MEDS ORDERED: FUROSEMIDE 40 MG/4 ML VIAL IV SCH (10:00)
[2024-12-07 12:00] VITALS: BP 147/82
[2024-12-07] MEDS ORDERED: Doxycycline Hyclate 100 MG CAPSULE PO SCH (15:10)
[2024-12-07 16:00] VITALS: BP 114/66
[2024-12-07 20:00] VITALS: BP 104/73; BP 161/95
[2024-12-08] VITALS: BP 140/66
[2024-12-08 06:18] LABS: BUN 21 mg/dl (9-23); CHLORIDE 99 mmol/L (98-107); POTASSIUM 3.1 mmol/L (3.4-5.1)
[2024-12-08 06:29] LABS: BASO # 0.1 10*3/uL (0.0-0.1); BASO % 0.7 % (0.0-1.0); EOS # 0.2 10*3/uL (0.0-0.4); EOS % 1.6 % (1.0-4.0); HEMATOCRIT 40.9 % (37.0-47.0); MEAN CELL VOLUME 92.5 fl (81.0-99.0); MEAN CORPUSCULAR HGB CONC 33.5 g/dl (33.0-37.0); MEAN PLATELET VOLUME 10.5 fl (9.6-12.3); MONO # 1.5 10*3/uL (0.1-1.0); MONO % 13.4 % (3.0-9.0); NEUT # 7.4 10*3/uL (2.3-7.9); NEUT % 66.3 % (47.0-73.0); PLATELET COUNT AUTOMATED 349 10*3/uL (130-400); RED BLOOD COUNT 4.42 10*6/uL (4.10-5.10); RED CELL DISTRI WIDTH 13.2 % (0-14.5); WHITE BLOOD COUNT 11.2 10*3/uL (4.8-10.8)
[2024-12-08 08:00] VITALS: BP 146/74
[2024-12-08] MEDS ORDERED: POTASSIUM CHLORIDE 20 MEQ TAB PO ONE (08:10)
[2024-12-08] MEDS ORDERED: GUAIFENESIN 600 MG TAB ER PO SCH (10:00)
[2024-12-08] MEDS ORDERED: methylPREDNISolone sod succ 40 MG VIAL IV SCH (10:05)
[2024-12-08 12:00] VITALS: BP 123/84
[2024-12-08] MEDS ORDERED: Albuterol Sulfate 2.5 MG/3 ML VIAL NEB SCH (15:25)
[2024-12-08 16:00] VITALS: BP 125/83
[2024-12-08 20:00] VITALS: BP 148/97
[2024-12-09] VITALS: BP 129/84
[2024-12-09 06:24] LABS: BUN 25 mg/dl (9-23); CHLORIDE 100 mmol/L (98-107); POTASSIUM 3.8 mmol/L (3.4-5.1)
[2024-12-09 06:28] LABS: BASO % 0.1 % (0.0-1.0); EOS % 0.4 % (1.0-4.0); HEMATOCRIT 42.6 % (37.0-47.0); MEAN CORPUSCULAR HGB 29.4 pg (27.0-31.0); MEAN CORPUSCULAR HGB CONC 31.9 g/dl (33.0-37.0); MEAN PLATELET VOLUME 10.4 fl (9.6-12.3); MONO # 0.5 10*3/uL (0.1-1.0); NEUT # 9.9 10*3/uL (2.3-7.9); NEUT % 86.8 % (47.0-73.0); PLATELET COUNT AUTOMATED 349 10*3/uL (130-400); RED BLOOD COUNT 4.63 10*6/uL (4.10-5.10); RED CELL DISTRI WIDTH 12.9 % (0-14.5); WHITE BLOOD COUNT 11.3 10*3/uL (4.8-10.8)
[2024-12-09 08:00] VITALS: BP 121/67
[2024-12-09 12:00] VITALS: BP 121/67
[2024-12-09 16:00] VITALS: BP 129/67
[2024-12-09 20:00] VITALS: BP 130/50
[2024-12-10] VITALS: BP 147/91
[2024-12-10 06:01] LABS: HEMATOCRIT 42.7 % (37.0-47.0); MEAN CELL VOLUME 91.2 fl (81.0-99.0); MEAN CORPUSCULAR HGB 29.5 pg (27.0-31.0); MEAN CORPUSCULAR HGB CONC 32.3 g/dl (33.0-37.0); MEAN PLATELET VOLUME 10.7 fl (9.6-12.3); PLATELET COUNT AUTOMATED 345 10*3/uL (130-400); RED BLOOD COUNT 4.68 10*6/uL (4.10-5.10); RED CELL DISTRI WIDTH 13.2 % (0-14.5); WHITE BLOOD COUNT 14.4 10*3/uL (4.8-10.8)
[2024-12-10 06:10] LABS: MANUAL DIFF REFLEX YES
[2024-12-10 06:30] LABS: POTASSIUM 3.8 mmol/L (3.4-5.1)
[2024-12-10 07:26] LABS: PLATELET SUFFICIENCY NORMAL (NORMAL); TOTAL CELLS COUNTED 100 #CELLS
[2024-12-10 08:00] VITALS: BP 148/104
[2024-12-10 12:00] VITALS: BP 142/64
[2024-12-10 16:00] VITALS: BP 142/88
[2024-12-10 20:00] VITALS: BP 153/84
[2024-12-11] VITALS: BP 137/83
[2024-12-11 06:14] LABS: HEMATOCRIT 42.5 % (37.0-47.0); MEAN CELL VOLUME 91.2 fl (81.0-99.0); MEAN CORPUSCULAR HGB CONC 32.9 g/dl (33.0-37.0); MEAN PLATELET VOLUME 10.4 fl (9.6-12.3); PLATELET COUNT AUTOMATED 360 10*3/uL (130-400); RED BLOOD COUNT 4.66 10*6/uL (4.10-5.10); RED CELL DISTRI WIDTH 13.3 % (0-14.5); WHITE BLOOD COUNT 16.5 10*3/uL (4.8-10.8)
[2024-12-11 06:18] LABS: MANUAL DIFF REFLEX YES
[2024-12-11 06:33] LABS: POTASSIUM 3.2 mmol/L (3.4-5.1)
[2024-12-11 07:02] LABS: PLATELET SUFFICIENCY NORMAL (NORMAL); TOTAL CELLS COUNTED 100 #CELLS
[2024-12-11] MEDS ORDERED: POTASSIUM CHLORIDE 20 MEQ TAB PO ONE (07:40)
[2024-12-11 08:00] VITALS: BP 147/83
[2024-12-11] MEDS ORDERED: FUROSEMIDE 40 MG/4 ML VIAL IV SCH (10:00)
[2024-12-11] MEDS ORDERED: methylPREDNISolone sod succ 40 MG VIAL IV SCH (10:00)
[2024-12-11] MEDS ORDERED: LASIX40 MG PO (10:34)
[2024-12-11] MEDS ORDERED: JARDIANCE10 MG PO (10:36)
[2024-12-11] MEDS ORDERED: MUCUS RELIEF E600 MG PO (10:37)
[2024-12-11] MEDS ORDERED: PREDNISONE10 MG PO (10:37)
[2024-12-11] MEDS ORDERED: POTASSIUM CHLO20 ME3 PO (11:39)
[2024-12-11 12:00] VITALS: BP 137/57
== END 2024-12-11 12:39 | disposition home or self-care (01) | DRG 291 ==
LOC: ED 21:41 → 5E 23:24 → EDHOLD 23:24 → 5E 12-06 11:43
PROVIDERS: Emergency Medicine; Student in an Organized Health Care Education/Training Program; ADMIT Internal Medicine; ATTEND Internal Medicine
DX: I13.0 Hypertensive heart and chronic kidney disease with heart failure and stage 1 through stage 4 chronic kidney disease, or unspecified chronic kidney disease (principal); I50.23 Acute on chronic systolic (congestive) heart failure; J15.69 Pneumonia due to other Gram-negative bacteria; J96.01 Acute respiratory failure with hypoxia; N17.9 Acute kidney failure, unspecified; Z68.41 Body mass index [BMI] 40.0-44.9, adult; J20.9 Acute bronchitis, unspecified; N28.9 Disorder of kidney and ureter, unspecified; E66.9 Obesity, unspecified; E78.5 Hyperlipidemia, unspecified; E87.5 Hyperkalemia; N18.30 Chronic kidney disease, stage 3 unspecified; K21.9 Gastro-esophageal reflux disease without esophagitis; D72.828 Other elevated white blood cell count; I25.118 Atherosclerotic heart disease of native coronary artery with other forms of angina pectoris; E11.65 Type 2 diabetes mellitus with hyperglycemia; E11.22 Type 2 diabetes mellitus with diabetic chronic kidney disease; I48.91 Unspecified atrial fibrillation; Z88.0 Allergy status to penicillin; I25.2 Old myocardial infarction; Z91.040 Latex allergy status; Z79.4 Long term (current) use of insulin; Z79.899 Other long term (current) drug therapy; Z79.01 Long term (current) use of anticoagulants; Z95.5 Presence of coronary angioplasty implant and graft; Z79.2 Long term (current) use of antibiotics; Z82.49 Family history of ischemic heart disease and other diseases of the circulatory system; Z83.3 Family history of diabetes mellitus